=== PATIENT | male | born 1985 | race African-American/Black ===

== ENCOUNTER 2016-10-18 05:32 | Emergency (ER) | payer OTHER ==
[~2016-10-18] VITALS: Ht 172.7 cm; Wt 80.0 kg
[2016-10-18 05:37] VITALS: BP 112/74; PULSE 73; RESP 18; TEMP 98.1; O2SAT 100
--- NOTE | 2016-10-18 07:29 | PD ---
HPI Chief Complaint: Alcohol/Drug Intoxication Time Seen by Provider: 07:29 Travel History International Travel<30 days: No Contact w/Intl Traveler<30days: No Traveled to known affect area: No History of Present Illness HPI 31-year-old male presents to the emergency department under [place] act for evaluation of alcohol intoxication. Apparently per the documentation of the officer the patient was intoxicated and unable to stand or speak which is why they brought him into the emergency department. The patient is currently awake , alert and oriented. The patient states that last night he drank too much alcohol, approximately 5 liquor drinks. He denies any drug use. States that he is here visiting his cousin from [place] and goes home tomorrow. He does have a little contusion to his forehead, the patient states that he was playing a game of football yesterday before drinking alcohol and that this is where his helmet rubbed him. He denies any falls, head trauma or loss of consciousness. The patient currently has no complaints. He denies any headache, lightheadedness, dizziness, nausea, vomiting, chest pain, shortness of breath, abdominal pain. Denies any medical conditions, takes no medications. No other complaints. [facility] Past Medical History Medical History: Denies Significant Hx ?: Not Past Surgical History Surgical History: No Previous Surgery Social History Alcohol Use: Yes Tobacco Use: No Substance Use: No Allergies-Medications (Allergen,Severity, Reaction): Coded Allergies: No Known Allergies (Unverified , 10/18/16) Reported Meds & Prescriptions Reported Meds & Active Scripts Active No Active Prescriptions or Reported Medications Review of Systems Except as stated in HPI: all other systems reviewed are Neg Physical Exam Narrative GENERAL: Well-nourished and well-developed pleasant patient in no acute distress who is nontoxic appearing. SKIN: Warm and dry. Small abrasion to forehead. HEAD: Normocephalic and atraumatic. No bony point tenderness or crepitus noted throughout the sinuses. EYES: No injection, drainage, or hyphema noted. PERRLA. EOMI. ENT: No nasal drainage noted. Oropharynx is clear. NECK: Supple and the trachea is midline. CARDIOVASCULAR: Regular rate and rhythm. RESPIRATORY: Breath sounds are equal bilaterally with no accessory muscle use, wheezing, rhonchi, or crackles. GASTROINTESTINAL: Abdomen is soft, non-tender, and nondistended. MUSCULOSKELETAL: No obvious deformities, swelling, cyanosis, or ecchymosis is present throughout the upper and lower extremities. Patient has full range of motion without any signs of neurovascular compromise. NEUROLOGICAL: Awake, alert, and oriented. Normal speech and gait. Cranial nerves are grossly intact. Data Data Last Documented VS Vital Signs Date Time Temp Pulse Resp B/P Pulse Ox O2 Delivery O2 Flow Rate FiO2 10/18/16 05:37 98.1 73 18 112/74 100 MDM Medical Decision Making Medical Screen Exam Complete: Yes Emergency Medical Condition: Yes Differential Diagnosis Alcohol intoxication versus alcohol abuse versus substance abuse Narrative Course 31-year-old male presents to the emergency department under [place] act for alcohol intoxication. Patient is afebrile, vital signs are stable. The patient is now awake, alert and oriented. He has a steady gait and does not appear intoxicated. He is here visiting family from out of town and drank too much last night. At this point I don't see any indication to do labs or imaging. He has a safe ride home and is stable for discharge. Diagnosis Primary Impression: Alcohol intoxication Qualified Code: F10.120 - Alcohol intoxication, uncomplicated Patient Instructions: Alcohol Intoxication (ED), General Instructions Additional Instructions: Return to the ED for any acute worsening of symptoms. Med/Other Pt SpecificInfo: No Change to Meds Scripts No Active Prescriptions or Reported Meds Disposition: 01 DISCHARGE HOME Condition: Stable Marj Eden Oct 18, 2016 07:29
== END 2016-10-18 07:44 | disposition home or self-care (01) ==
LOC: NEPA 05:32
DX: F10.120 Alcohol abuse with intoxication, uncomplicated (principal); S00.83XA Contusion of other part of head, initial encounter; W22.8XXA Striking against or struck by other objects, initial encounter; Y93.61 Activity, american tackle football; Y92.89 Other specified places as the place of occurrence of the external cause; Y99.8 Other external cause status
CPT/HCPCS: 99283